=== PATIENT | female | born 1980 | race Two or more races ===

== ENCOUNTER 2021-01-11 20:17 | Outpatient (CLI) | payer OTHER ==
[2021-01-11] MEDS ORDERED: FOLIC ACID0.8 M1 PO (21:48)
[2021-01-11] MEDS ORDERED: PRENATAL TABLE1 EAC1 PO (21:48)
== END 2021-01-12 14:31 | disposition home or self-care (01) ==
LOC: OBS/DEL 20:17
PROVIDERS: ATTEND Obstetrics & Gynecology
DX: O14.03 Mild to moderate pre-eclampsia, third trimester (principal); O36.8130 Decreased fetal movements, third trimester, not applicable or unspecified; O26.843 Uterine size-date discrepancy, third trimester; Z3A.36 36 weeks gestation of pregnancy

== ENCOUNTER 2021-01-17 14:01 | Inpatient (IN) | payer OTHER ==
[~2021-01-17] VITALS: Ht 157.5 cm; Wt 112.9 kg
[~2021-01-17 14:01] MED LIST: FOLIC ACID0.8 M1 PO; PRENATAL TABLE1 EAC1 PO
[2021-01-19] MEDS ORDERED: Procardia Xl 30MG TA PO (13:48)
== END 2021-01-19 16:27 | disposition home or self-care (01) | DRG 833 ==
LOC: OBS/DEL 14:01 → LDR 01-18 11:42
PROVIDERS: ADMIT Obstetrics & Gynecology; ATTEND Obstetrics & Gynecology
PROC: 4A1HXFZ Monitoring of Products of Conception, Cardiac Rhythm, External Approach (ICD-10-PCS; principal; 2021-01-18)
PROC: BY4FZZZ Ultrasonography of Third Trimester, Single Fetus (ICD-10-PCS; 2021-01-18)
DX: O14.03 Mild to moderate pre-eclampsia, third trimester (principal); O99.213 Obesity complicating pregnancy, third trimester; E66.9 Obesity, unspecified; Z3A.34 34 weeks gestation of pregnancy

== ENCOUNTER 2021-01-25 15:52 | Inpatient (IN) | payer OTHER ==
[~2021-01-25] VITALS: Ht 157.5 cm; Wt 107.5 kg
[~2021-01-25 15:52] MED LIST changes: +Procardia Xl 30MG TA PO
== END 2021-01-28 18:18 | disposition home or self-care (01) | DRG 807 ==
LOC: LDR 15:52 → OB/GYN 01-26 23:14
PROVIDERS: ADMIT Obstetrics & Gynecology; ATTEND Obstetrics & Gynecology
PROC: 10E0XZZ Delivery of Products of Conception, External Approach (ICD-10-PCS; principal; 2021-01-25)
PROC: 10907ZC Drainage of Amniotic Fluid, Therapeutic from Products of Conception, Via Natural or Artificial Opening (ICD-10-PCS; 2021-01-25)
PROC: 3E033VJ Introduction of Other Hormone into Peripheral Vein, Percutaneous Approach (ICD-10-PCS; 2021-01-25)
PROC: 4A1HXFZ Monitoring of Products of Conception, Cardiac Rhythm, External Approach (ICD-10-PCS; 2021-01-25)
DX: O14.94 Unspecified pre-eclampsia, complicating childbirth (principal); Z37.0 Single live birth; O99.214 Obesity complicating childbirth; E66.9 Obesity, unspecified; Z3A.35 35 weeks gestation of pregnancy